=== PATIENT | female | born 1970 | race Caucasian/White ===

== ENCOUNTER 2019-07-17 05:46 | Emergency (ER) | payer OTHER ==
[~2019-07-17] VITALS: Ht 172.7 cm; Wt 90.7 kg
[2019-07-17] MEDS ORDERED: ASPirin 81 mg TAB PO ONE (06:00)
[2019-07-17] MEDS ORDERED: ASPirin 81 mg TAB ONE (06:02)
[2019-07-17] MEDS ORDERED: SODIUM CHLORIDE 0.9% 1,000 ML IV ONE (07:34)
[2019-07-17 07:40] LABS: Basophils # (auto) 0 uL; Eosinophils # (auto) 0.1 uL; Lymphocytes # (auto) 1.1 uL; Monocytes # (auto) 0.4 uL; Platelet Count (auto) 278 10^3/uL (140-450)
[2019-07-17 07:42] LABS: Basophils % (auto) 0.5 % (0.0-2.0); Eosinophils % (auto) 1.1 % (0.0-7.0); Hematocrit 37.5 % (36.0-46.0); Lymphocytes % (auto) 13.1 % (10.0-50.0); Mean Corpuscular Hemoglobin 23.1 pg (28.0-32.0); Mean Corpuscular Hgb Conc. 32.1 g/dL (32.0-36.0); Monocytes % (auto) 4.5 % (0.0-12.0); Neutrophils # (auto) 6.8 uL; Neutrophils % (auto) 80.8 % (37.0-80.0); Red Cell Distribution Width 17.4 % (11.8-14.3); White Blood Cell 8.4 10^3/uL (4.4-10.8)
[2019-07-17] MEDS ORDERED: KETOROLAC TROMETH 30 MG/ML 1ML VIAL IV ONE (07:45)
[2019-07-17 07:52] LABS: INR 1.13 (0.9-1.15); Partial Thromboplastin Time 37.3 sec (23.64-32.05)
[2019-07-17 07:56] LABS: Potassium 4.1 mmol/L (3.5-5.1); Sodium 138 mmol/L (136-145)
[2019-07-17 08:03] LABS: Alanine Aminotransferase 26 U/L (13-56); Albumin 3.5 g/dL (3.4-5.0); Aspartate Aminotransferase 18 U/L (15-37); BUN/Creatinine Ratio 19.2; Bilirubin, Total 0.4 mg/dL (0.2-1.0); Blood Urea Nitrogen 14 mg/dL (7-18); Calcium 8.6 mg/dL (8.5-10.1); Carbon Dioxide 26 mmol/L (21-32); GFR African American 110 mL/min; GFR Non-African American 91 mL/min; Glucose 90 mg/dL (74-106); Total Protein 7.6 g/dL (6.4-8.2)
[2019-07-17 08:13] LABS: Alkaline Phosphatase 97 U/L (45-117)
[2019-07-17 08:48] LABS: Urine Bacteria MANY /hpf (None Seen); Urine Blood Negative /uL (Negative); Urine Mucus FEW (None Seen); Urine Specific Gravity 1.022 (1.001-1.035); Urine WBC 3 /hpf (0 - 5)
[2019-07-17 09:30] VITALS: BP 129/69
[2019-07-17 10:00] LABS: Anion Gap 5 (5-15); Chloride 107 mmol/L (98-107)
== END 2019-07-17 11:22 | disposition home or self-care (01) ==
LOC: ER 05:46
DX: R07.89 Other chest pain (principal); E03.9 Hypothyroidism, unspecified; J45.909 Unspecified asthma, uncomplicated; Z90.49 Acquired absence of other specified parts of digestive tract; Z88.0 Allergy status to penicillin; Z88.1 Allergy status to other antibiotic agents
CPT/HCPCS: 36415; 71045; 80053; 81001; 83735; 83880; 84443; 84484; 85025; 85610; 85730; 93005; 96374; 99284; J1885; J7030

== ENCOUNTER 2020-09-12 14:37 | Inpatient (IN) | payer OTHER ==
[~2020-09-12] VITALS: Ht 172.7 cm; Wt 130.0 kg
[2020-09-12] MEDS ORDERED: ALPRAZolam 0.25 MG TAB PO ONE (15:30)
[2020-09-12] MEDS ORDERED: ACETAMINOPHEN 325 MG TAB PO ONE (15:30)
[2020-09-12] MEDS ORDERED: MORPHINE SULFATE 4 MG/ML SYR/VIAL IV ONE (15:30)
[2020-09-12] MEDS ORDERED: ASPirin-EC 81 mg tab PO ONE (15:30)
[2020-09-12] MEDS ORDERED: SOD CHL 0.45% 1,000 ML IV ONE (15:30)
[2020-09-12] MEDS ORDERED: ACETAMINOPHEN 325 MG TAB PO PRN (15:30)
[2020-09-12] MEDS ORDERED: NITROGLYCERIN 0.4 MG SL TAB SL PRN (15:30)
[2020-09-12] MEDS ORDERED: MORPHINE SULF INJ 2 MG/ML SYRINGE 1ML IV PRN (15:30)
[2020-09-12] MEDS ORDERED: MORPHINE SULFATE 4 MG/ML SYR/VIAL IV PRN ×2 (15:30→16:00)
[2020-09-12 16:00] VITALS: BP 126/70
[2020-09-12] MEDS ORDERED: ONDANSETRON HCL 4 MG/2 ML VIAL IV PRN (16:00)
[2020-09-12] MEDS ORDERED: ENOXAPARIN SOD 60 MG/0.6 ML SYRINGE SC ONE (16:00)
[2020-09-12] MEDS ORDERED: OMEP-434 PO (16:22)
[2020-09-12] MEDS ORDERED: FEXO-42 PO (16:22)
[2020-09-12] MEDS ORDERED: INDO25CA18 PO (16:22)
[2020-09-12] MEDS ORDERED: FLUT1SPR5 (16:22)
[2020-09-12] MEDS ORDERED: IOHEXOL 350 MG/ML 100ML IJ ONE (17:25)
[2020-09-12] MEDS: ALPRAZolam 0.25 MG TAB PO SCH (21:40)
[2020-09-12 21:53] LABS: Basophils # (auto) 0.1 10 ^3/uL (0-0.2); Basophils % (auto) 0.9 % (0.0-2.0); Eosinophils # (auto) 0.1 10 ^3/uL (0-0.8); Eosinophils % (auto) 1.6 % (0.0-7.0); Hematocrit 39.5 % (36.0-46.0); Lymphocytes # (auto) 1.7 10 ^3/uL (0.4-5.4); Lymphocytes % (auto) 24.2 % (10.0-50.0); Mean Corpuscular Hemoglobin 25.1 pg (28.0-32.0); Mean Corpuscular Hgb Conc. 32.9 g/dL (32.0-36.0); Mean Corpuscular Volume 76.2 fL (80.0-100.0); Monocytes # (auto) 0.5 10 ^3/uL (0-1.3); Monocytes % (auto) 6.8 % (0.0-12.0); Neutrophils # (auto) 4.6 10 ^3/uL (1.6-8.6); Neutrophils % (auto) 66.5 % (37.0-80.0); Nucleated Red Blood Cells % 0.1 %; Platelet Count (auto) 297 10^3/uL (140-450); Red Blood Cells 5.18 10^6/uL (4.0-5.20); Red Cell Distribution Width 16.8 % (11.8-14.3); White Blood Cell 6.9 10^3/uL (4.4-10.8)
[2020-09-12 22:00] VITALS: BP_SYST 124; BP_SYST 129; BP_SYST 136; BP_DIAS 67; BP_DIAS 75; BP_DIAS 77
[2020-09-12 22:09] LABS: Anion Gap 7 (5-15); BUN/Creatinine Ratio 13.5; Blood Urea Nitrogen 13 mg/dL (7-18); Calcium 9.2 mg/dL (8.5-10.1); Carbon Dioxide 25 mmol/L (21-32); Chloride 105 mmol/L (98-107); GFR African American 80 mL/min; GFR Non-African American 66 mL/min; Glucose 106 mg/dL (74-106); Potassium 3.6 mmol/L (3.5-5.1); Sodium 137 mmol/L (136-145)
[2020-09-13 02:16] LABS: Urine Bacteria FEW /hpf (None Seen); Urine Blood Negative /uL (Negative); Urine Mucus FEW (None Seen); Urine WBC 1 /hpf (0 - 5)
[2020-09-13 02:24] LABS: Urine Specific Gravity > 1.045 (1.001-1.035)
[2020-09-13 05:00] VITALS: BP 116/73
[2020-09-13] MEDS: ALPRAZolam 0.25 MG TAB PO SCH ×3 (06:25→21:52)
[2020-09-13] MEDS: LEVOTHYROXINE SODIUM 25 MCG TAB PO SCH ×2 (06:25→06:39)
[2020-09-13] MEDS ORDERED: LEVO25TA49 PO (06:40)
[2020-09-13 07:13] LABS: Basophils # (auto) 0.1 10 ^3/uL (0-0.2); Basophils % (auto) 0.9 % (0.0-2.0); Eosinophils # (auto) 0.1 10 ^3/uL (0-0.8); INR 1.13 (0.9-1.15); Mean Corpuscular Hgb Conc. 33.7 g/dL (32.0-36.0); Monocytes # (auto) 0.4 10 ^3/uL (0-1.3); Nucleated Red Blood Cells % 0.1 %; Partial Thromboplastin Time 36.7 sec (23.0-31.2); White Blood Cell 5.8 10^3/uL (4.4-10.8)
[2020-09-13 07:17] LABS: Eosinophils % (auto) 1.2 % (0.0-7.0); Hematocrit 38.9 % (36.0-46.0); Hemoglobin 13.1 g/dL (12.2-16.2); Lymphocytes # (auto) 1.3 10 ^3/uL (0.4-5.4); Lymphocytes % (auto) 22.9 % (10.0-50.0); Mean Corpuscular Hemoglobin 25.4 pg (28.0-32.0); Mean Corpuscular Volume 75.3 fL (80.0-100.0); Monocytes % (auto) 6.4 % (0.0-12.0); Neutrophils % (auto) 68.6 % (37.0-80.0); Platelet Count (auto) 271 10^3/uL (140-450); Red Blood Cells 5.16 10^6/uL (4.0-5.20); Red Cell Distribution Width 16.7 % (11.8-14.3)
[2020-09-13 07:28] LABS: Albumin 3.5 g/dL (3.4-5.0); Anion Gap 5 (5-15); Blood Urea Nitrogen 12 mg/dL (7-18); Calcium 8.5 mg/dL (8.5-10.1); Carbon Dioxide 25 mmol/L (21-32); Chloride 106 mmol/L (98-107); Glucose 92 mg/dL (74-106); Potassium 3.8 mmol/L (3.5-5.1); Sodium 136 mmol/L (136-145)
[2020-09-13 07:33] LABS: Alanine Aminotransferase 49 U/L (13-56); Alkaline Phosphatase 86 U/L (45-117); Aspartate Aminotransferase 25 U/L (15-37); BUN/Creatinine Ratio 15.4; Bilirubin, Total 0.4 mg/dL (0.2-1.0); Cholesterol 122 mg/dL (< 200); GFR African American 102 mL/min; GFR Non-African American 84 mL/min; HDL Cholesterol 48 mg/dL (40-59); LDL Cholesterol 61 mg/dL (< 100); Total Protein 7.7 g/dL (6.4-8.2); Triglycerides 78 mg/dL (< 150)
[2020-09-13 08:00] VITALS: BP 117/77
[2020-09-13] MEDS: ASPirin-EC 81 mg tab PO SCH (09:59)
[2020-09-13] MEDS: METOPROLOL SUCCINATE XL 50 MG TAB PO SCH (10:00)
[2020-09-13 16:00] VITALS: BP 115/69
[2020-09-13 22:00] VITALS: BP 120/73
[2020-09-14 05:00] VITALS: BP 104/66
[2020-09-14] MEDS: ALPRAZolam 0.25 MG TAB PO SCH ×3 (05:37→21:30)
[2020-09-14] MEDS: LEVOTHYROXINE SODIUM 25 MCG TAB PO SCH (06:19)
[2020-09-14 08:00] VITALS: BP 120/70
[2020-09-14] MEDS: ASPirin-EC 81 mg tab PO SCH (09:45)
[2020-09-14] MEDS: METOPROLOL SUCCINATE XL 50 MG TAB PO SCH (09:46)
[2020-09-14 14:19] LABS: Folate (Folic Acid) 8.31 ng/mL (5.38-24)
[2020-09-14 15:56] VITALS: BP 109/70
[2020-09-14 23:10] VITALS: BP 110/69
[2020-09-14 23:13] VITALS: BP 110/74
[2020-09-14 23:15] VITALS: BP 142/76
[2020-09-15] MEDS: ALPRAZolam 0.25 MG TAB PO SCH ×2 (05:30→14:31)
[2020-09-15 06:08] VITALS: BP 116/71
[2020-09-15] MEDS ORDERED: LEVOTHYROXINE SODIUM 25 MCG TAB PO SCH (07:00)
[2020-09-15 07:37] VITALS: BP 129/72
[2020-09-15] MEDS: ASPirin-EC 81 mg tab PO SCH (09:44)
[2020-09-15] MEDS ORDERED: ALPR0.255 PO (13:19)
[2020-09-15] MEDS ORDERED: LEV25T PO (16:42)
[2020-09-15] MEDS ORDERED: ASPI-543 PO (16:42)
== END 2020-09-15 17:20 | disposition home or self-care (01) | DRG 313 ==
LOC: TELE-CENTR 14:37
PROVIDERS: ADMIT Specialist; ATTEND Specialist
DX: R07.89 Other chest pain (principal); Z68.41 Body mass index [BMI] 40.0-44.9, adult; E03.9 Hypothyroidism, unspecified; R55 Syncope and collapse; E66.01 Morbid (severe) obesity due to excess calories; Z20.822 Contact with and (suspected) exposure to COVID-19; E78.1 Pure hyperglyceridemia; E86.1 Hypovolemia; F17.200 Nicotine dependence, unspecified, uncomplicated; F41.1 Generalized anxiety disorder; K21.9 Gastro-esophageal reflux disease without esophagitis; I10 Essential (primary) hypertension; M19.90 Unspecified osteoarthritis, unspecified site; N28.1 Cyst of kidney, acquired; Z80.3 Family history of malignant neoplasm of breast; Z80.49 Family history of malignant neoplasm of other genital organs; Z83.3 Family history of diabetes mellitus; Z85.41 Personal history of malignant neoplasm of cervix uteri; Z90.49 Acquired absence of other specified parts of digestive tract; Z88.1 Allergy status to other antibiotic agents; Z88.8 Allergy status to other drugs, medicaments and biological substances; Z88.0 Allergy status to penicillin
CPT/HCPCS: 36415; 70551; 71275; 76775; 78452; 80048; 80053; 80061; 81001; 82607; 82746; 83036; 84443; 84484; 85025; 85379; 85610; 85730; 93017; 93306; 93971; 95819; G0378

== ENCOUNTER 2022-01-27 14:22 | Emergency (ER) | payer OTHER ==
[~2022-01-27] VITALS: Ht 172.7 cm; Wt 124.7 kg
[~2022-01-27 14:22] MED LIST: ASPI-543 PO; FEXO-42 PO; FLUT1SPR5; INDO25CA18 PO; LEV25T PO; LEVO25TA49 PO; OMEP-434 PO
[2022-01-27 14:48] LABS: Basophils # (auto) 0.1 10 ^3/uL (0-0.2); Basophils % (auto) 0.8 % (0.0-2.0); Lymphocytes # (auto) 1.8 10 ^3/uL (0.4-5.4); Mean Corpuscular Hemoglobin 26.8 pg (28.0-32.0); Mean Corpuscular Hgb Conc. 33.3 g/dL (32.0-36.0)
[2022-01-27 14:50] LABS: Eosinophils # (auto) 0.3 10 ^3/uL (0-0.8); Hematocrit 38.5 % (36.0-46.0); Hemoglobin 12.8 g/dL (12.2-16.2); Lymphocytes % (auto) 19.9 % (10.0-50.0); Mean Corpuscular Volume 80.4 fL (80.0-100.0); Monocytes # (auto) 0.6 10 ^3/uL (0-1.3); Monocytes % (auto) 6.2 % (0.0-12.0); Neutrophils # (auto) 6.3 10 ^3/uL (1.6-8.6); Neutrophils % (auto) 70.1 % (37.0-80.0); Red Blood Cells 4.79 10^6/uL (4.0-5.20); Red Cell Distribution Width 15.5 % (11.8-14.3); White Blood Cell 8.9 10^3/uL (4.4-10.8)
[2022-01-27] MEDS ORDERED: SODIUM CHLORIDE 0.9% 1,000 ML IV ONE (15:00)
[2022-01-27 15:15] LABS: Urine Bacteria FEW /hpf (None Seen); Urine Blood Negative /uL (Negative); Urine Specific Gravity 1.017 (1.001-1.035); Urine WBC 1 /hpf (0 - 5)
[2022-01-27 15:18] LABS: Albumin 3.5 g/dL (3.4-5.0); BUN/Creatinine Ratio 20.2; Potassium 4.1 mmol/L (3.5-5.1)
[2022-01-27 15:19] LABS: Bilirubin, Total 0.4 mg/dL (0.2-1.0); Total Protein 7.2 g/dL (6.4-8.2)
[2022-01-27 16:21] VITALS: BP 145/69
== END 2022-01-27 17:25 | disposition home or self-care (01) ==
LOC: ER 14:22
DX: R07.89 Other chest pain (principal); J45.909 Unspecified asthma, uncomplicated; Z90.49 Acquired absence of other specified parts of digestive tract; Z88.0 Allergy status to penicillin; Z88.1 Allergy status to other antibiotic agents
CPT/HCPCS: 36415; 71046; 80053; 81001; 83735; 83880; 84443; 84484; 85025; 93005; 96360; 96361; 99285; J7030

== ENCOUNTER 2023-05-09 22:56 | Emergency (ER) | payer BC, OTHER ==
[~2023-05-09] VITALS: Ht 172.7 cm; Wt 127.3 kg
[~2023-05-09 22:56] MED LIST changes: +INDO-35 PO; -INDO25CA18 PO
[2023-05-09 23:24] VITALS: BP 142/75; PULSE 91; RESP 16; TEMP 97.5
[2023-05-10] MEDS ORDERED: ONDANSETRON ODT 4 MG TAB PO ONE (01:45)
[2023-05-10 01:50] VITALS: O2SAT 95
== END 2023-05-10 02:16 | disposition home or self-care (01) ==
LOC: ER 22:56
DX: G44.209 Tension-type headache, unspecified, not intractable (principal); J45.909 Unspecified asthma, uncomplicated; I10 Essential (primary) hypertension; Z90.49 Acquired absence of other specified parts of digestive tract
CPT/HCPCS: 70450; 99284; Q0162

== ENCOUNTER 2023-07-14 15:19 | Emergency (ER) | payer BC, OTHER ==
[~2023-07-14] VITALS: Ht 172.7 cm; Wt 131.8 kg
[2023-07-14] MEDS ORDERED: BENZ200C64 PO (19:37)
[2023-07-14] MEDS ORDERED: FLUT1SPR5 (19:37)
[2023-07-14] MEDS ORDERED: ALBUAER3 IN (19:37)
[2023-07-14] MEDS ORDERED: MONT10TA23 PO (19:37)
[2023-07-14] MEDS ORDERED: BACDST PO (19:37)
[2023-07-14] MEDS ORDERED: PRED20TA2 PO (19:37)
[2023-07-14 20:00] VITALS: BP 122/74; PULSE 85; RESP 18; TEMP 98; O2SAT 95
== END 2023-07-14 20:07 | disposition home or self-care (01) ==
LOC: ER 15:19
DX: J01.90 Acute sinusitis, unspecified (principal); R19.7 Diarrhea, unspecified; R50.9 Fever, unspecified; J45.909 Unspecified asthma, uncomplicated; I10 Essential (primary) hypertension; Z90.49 Acquired absence of other specified parts of digestive tract